=== PATIENT | male | born 1950 | race Caucasian/White ===

== ENCOUNTER 2022-06-11 11:18 | Inpatient (IN) | payer OTHER ==
[2022-06-11] MEDS ORDERED: Aspirin Chewable 81 MG TAB ONE (12:35)
[2022-06-11] MEDS ORDERED: Furosemide 40 MG/4 ML VIAL ONE (12:36)
[2022-06-11] MEDS ORDERED: Nitroglycerin 2% Ointment 1 INCH/1 GM Packet ONE (12:36)
[2022-06-11 13:08] LABS: #Basophils 0.1 10x3/uL (0.0-0.2); #Eosinphils 0.6 10x3/uL (0.0-0.5); #Monocytes 1.3 10x3/uL (0.0-1.1); #Neutrophils 6.8 10x3/uL (1.5-8.4); %Basophils 0.8 % (0.0-2.0); %Eosinophils 4.9 % (0.0-6.0); %Lymphocytes 24.9 % (18.0-47.0); %Monocytes 11.1 % (0.0-10.0); Hemoglobin 11.8 g/dL (13.5-17.5); Mean Corpuscular HGB CONC 31.7 g/dL (32.0-36.0); Mean Corpuscular Hemoglobin 28.9 pg (27.0-33.0); Mean Platelet Volume 10.2 fl (7.4-10.4); Platelet Count 294 10x3/uL (150-450); RBC Distribution Width 14.1 % (11.5-14.5); Red Blood Cell (RBC) Count 4.09 10x6/uL (4.32-5.72); White Blood Cell (WBC) Count 11.7 10x3/uL (3.5-10.5)
[2022-06-11 13:17] LABS: ALT (SGPT) 19 U/L (8-55); AST (SGOT) 20 U/L (5-34); Alkaline Phosphatase 65 U/L (40-110); Anion Gap 14 mmol/L (10-20); BUN (Urea Nitrogen) 21 mg/dL (8.4-25.7); CK (CPK) 58 U/L (30-200); Calc. Creatinine Clearance 0 mL/min (70-130); Calcium 8.8 mg/dL (7.8-10.44); Carbon Dioxide 20 mmol/L (23-31); Chloride 110 mmol/L (98-107); Estimated GFR 63; Globulin 2.8 g/dL (2.4-3.5); Glucose 97 mg/dL (83-110); PTT 24.2 sec (22.0-33.0); Potassium 3.9 mmol/L (3.5-5.1); Protein, Total 6.8 g/dL (5.8-8.1); Prothrombin Time 10.9 sec (9.5-12.1); Sodium 140 mmol/L (136-145)
[2022-06-11 15:32] LABS: Bilirubin Neg (Negative); Blood, Urine 10 (Negative); Clarity Slightly Cloudy (Clear); Glucose, Urine (Dipstick) Normal (Negative); Ketone, Urine Negative (Negative); Leukocyte 25 (Negative); Nitrite Negative (Negative); Protein, Urine (Dipstick) 100 mg/dl (Neg-Trace)
[2022-06-11 15:38] LABS: Bacteria/HPF None Seen HPF (None Seen); Mucous/LPF 3+ LPF (<2+); RBC/HPF 0-3 HPF (0-3); Squamous Epithelial 0-3 HPF (0-3); WBC/HPF 0-3 HPF (0-3)
[2022-06-11 16:12] LABS: Troponin I Less than 0.010 ng/mL (< 0.028)
[2022-06-11] MEDS ORDERED: Ondansetron ODT 4 MG TAB PO PRN (16:21)
[2022-06-11] MEDS ORDERED: Senokot S 8.6-50 MG TAB PO PRN (16:21)
[2022-06-11] MEDS ORDERED: Ondansetron PF 4 MG/2 ML Vial IVP PRN (16:21)
[2022-06-11] MEDS ORDERED: Acetaminophen 325 MG TAB PO PRN (16:21)
[2022-06-11 17:35] LABS: Magnesium 2.2 mg/dL (1.6-2.6)
[2022-06-11 19:18] LABS: Troponin I Less than 0.010 ng/mL (< 0.028)
[2022-06-11] MEDS ORDERED: Furosemide 40 MG/4 ML VIAL SLOW IVP SCH (21:00)
[2022-06-11] MEDS ORDERED: Carvedilol 25 MG TAB PO SCH (21:00)
[2022-06-11] MEDS: Atorvastatin Calcium 10 MG TAB PO SCH (21:42)
[2022-06-11] MEDS: Doxycycline 100 MG CAP PO SCH (21:42)
[2022-06-11] MEDS: Terazosin HCl 5 MG CAP PO SCH (21:43)
[2022-06-11] MEDS: hydrALAZINE 25 MG TAB PO SCH (21:43)
[2022-06-11] MEDS ORDERED: VANCOMYCIN 2 GRAM/400 ML BAG 2 GM in Premix Bag 1 BAG IVPB SCH (22:00)
[2022-06-12 01:30] LABS: SARS-CoV-2 NAA Rapid Test Not Detected (NotDetected)
[2022-06-12] MEDS: Vancomycin 1.5 GRAM/300 ML BAG IVPB SCH (05:52)
[2022-06-12] MEDS ORDERED: Furosemide 40 MG/4 ML VIAL SLOW IVP SCH (06:00)
[2022-06-12 06:23] LABS: #Basophils 0.1 10x3/uL (0.0-0.2); #Eosinphils 0.4 10x3/uL (0.0-0.5); #Monocytes 1.1 10x3/uL (0.0-1.1); #Neutrophils 5.3 10x3/uL (1.5-8.4); %Basophils 0.8 % (0.0-2.0); %Eosinophils 4.6 % (0.0-6.0); %Lymphocytes 24.6 % (18.0-47.0); %Monocytes 12.1 % (0.0-10.0); %Neutrophils 57.6 % (40.0-75.0); Hemoglobin 10.6 g/dL (13.5-17.5); Mean Corpuscular HGB CONC 31.9 g/dL (32.0-36.0); Mean Platelet Volume 10.4 fl (7.4-10.4); Platelet Count 250 10x3/uL (150-450); RBC Distribution Width 13.8 % (11.5-14.5); Red Blood Cell (RBC) Count 3.65 10x6/uL (4.32-5.72); White Blood Cell (WBC) Count 9.2 10x3/uL (3.5-10.5)
[2022-06-12 06:37] LABS: Anion Gap 14 mmol/L (10-20); BUN (Urea Nitrogen) 21 mg/dL (8.4-25.7); Calc. Creatinine Clearance 100 mL/min (70-130); Calcium 8.4 mg/dL (7.8-10.44); Carbon Dioxide 20 mmol/L (23-31); Chloride 112 mmol/L (98-107); Estimated GFR 63; Glucose 111 mg/dL (83-110); Potassium 3.6 mmol/L (3.5-5.1); Sodium 142 mmol/L (136-145)
[2022-06-12] MEDS ORDERED: Lisinopril 20 MG TAB PO SCH (09:00)
[2022-06-12] MEDS ORDERED: Lisinopril 5 MG TAB PO SCH (09:00)
[2022-06-12] MEDS ORDERED: Aspirin 81 mg Enteric Coated Tablet PO SCH (09:00)
[2022-06-12] MEDS ORDERED: Tamsulosin HCl 0.4 MG CAP PO SCH (09:00)
[2022-06-12] MEDS ORDERED: Apixaban 5 MG TAB PO SCH (09:30)
[2022-06-12] MEDS: Doxycycline 100 MG CAP PO SCH ×2 (09:58→20:29)
[2022-06-12] MEDS: Carvedilol 25 MG TAB PO SCH ×2 (09:58→17:45)
[2022-06-12] MEDS: Oxybutynin 5 MG TAB PO SCH (09:58)
[2022-06-12] MEDS: hydrALAZINE 25 MG TAB PO SCH ×2 (09:59→16:11)
[2022-06-12] MEDS: Furosemide 20 MG TAB PO SCH (16:11)
[2022-06-12] MEDS: cefTRIAXone\\ROCEPHIN 2 GM in Sodium Chloride 0.9% 100 ML IVPB SCH (17:45)
[2022-06-12] MEDS: Atorvastatin Calcium 10 MG TAB PO SCH (20:29)
[2022-06-12] MEDS: Terazosin HCl 5 MG CAP PO SCH (20:29)
[2022-06-12] MEDS: Apixaban 5 MG TAB PO SCH (20:29)
[2022-06-13 05:34] LABS: Anion Gap 12 mmol/L (10-20); BUN (Urea Nitrogen) 15 mg/dL (8.4-25.7); Calc. Creatinine Clearance 130 mL/min (70-130); Calcium 8.5 mg/dL (7.8-10.44); Carbon Dioxide 23 mmol/L (23-31); Chloride 109 mmol/L (98-107); Estimated GFR 86; Glucose 95 mg/dL (83-110); Potassium 3.2 mmol/L (3.5-5.1); Sodium 141 mmol/L (136-145)
[2022-06-13 05:38] VITALS: BMI 38.9
[2022-06-13 05:38] LABS: #Basophils 0.1 10x3/uL (0.0-0.2); #Eosinphils 0.4 10x3/uL (0.0-0.5); #Monocytes 0.7 10x3/uL (0.0-1.1); #Neutrophils 3.4 10x3/uL (1.5-8.4); %Basophils 0.7 % (0.0-2.0); %Eosinophils 6.4 % (0.0-6.0); %Lymphocytes 31.3 % (18.0-47.0); %Neutrophils 50.3 % (40.0-75.0); Mean Corpuscular HGB CONC 32.2 g/dL (32.0-36.0); Mean Corpuscular Volume 90.2 fl (81.2-95.1); Mean Platelet Volume 10.6 fl (7.4-10.4); Platelet Count 238 10x3/uL (150-450); RBC Distribution Width 13.9 % (11.5-14.5); Red Blood Cell (RBC) Count 3.79 10x6/uL (4.32-5.72); White Blood Cell (WBC) Count 6.7 10x3/uL (3.5-10.5)
[2022-06-13] MEDS ORDERED: Electrolyte Replacement Protocol 1 EACH FS SCH (08:15)
[2022-06-13] MEDS ORDERED: Potassium Chloride 20 MEQ TAB PO SCH (08:15)
[2022-06-13] MEDS ORDERED: Potassium Chloride 20 MEQ in Premix Bag 1 BAG IVPB SCH (08:15)
[2022-06-13] MEDS ORDERED: Lisinopril 20 MG TAB PO SCH (09:00)
[2022-06-13] MEDS: Doxycycline 100 MG CAP PO SCH (09:04)
[2022-06-13] MEDS: Oxybutynin 5 MG TAB PO SCH (09:04)
[2022-06-13] MEDS: Apixaban 5 MG TAB PO SCH ×2 (09:04→23:02)
[2022-06-13] MEDS: Furosemide 20 MG TAB PO SCH ×2 (09:04→17:22)
[2022-06-13] MEDS: Carvedilol 25 MG TAB PO SCH ×2 (09:12→17:08)
[2022-06-13] MEDS ORDERED: ePHEDrine Sulfate 50 MG/10 ML VIAL ONE (15:07)
[2022-06-13] MEDS ORDERED: Lidocaine 2% MPF 10 ML AMP (For Epidural Use) ONE (15:07)
[2022-06-13] MEDS ORDERED: PROPOFOL 20 ML ONE ×2 (15:07)
[2022-06-13] MEDS: Saccharomyces boulardii 250 MG CAP PO SCH (17:23)
[2022-06-13] MEDS: cefTRIAXone\\ROCEPHIN 2 GM in Sodium Chloride 0.9% 100 ML IVPB SCH (17:24)
[2022-06-13 17:26] LABS: Potassium 4.1 mmol/L (3.5-5.1)
[2022-06-13] MEDS: Amiodarone 200 MG TAB PO SCH (23:02)
[2022-06-13] MEDS: Atorvastatin Calcium 10 MG TAB PO SCH (23:02)
[2022-06-13] MEDS: Terazosin HCl 5 MG CAP PO SCH (23:02)
[2022-06-14 04:30] LABS: Anion Gap 11 mmol/L (10-20); BUN (Urea Nitrogen) 13 mg/dL (8.4-25.7); Calc. Creatinine Clearance 120 mL/min (70-130); Calcium 8.2 mg/dL (7.8-10.44); Carbon Dioxide 26 mmol/L (23-31); Chloride 108 mmol/L (98-107); Estimated GFR 79; Glucose 101 mg/dL (83-110); Magnesium 1.9 mg/dL (1.6-2.6); Potassium 3.2 mmol/L (3.5-5.1); Sodium 142 mmol/L (136-145)
[2022-06-14] MEDS ORDERED: Potassium Chloride 20 MEQ TAB PO SCH (08:00)
[2022-06-14] MEDS ORDERED: Magnesium 2 GM/50 ML(in water) 2 GM in Premix Bag 1 BAG IVPB SCH (08:00)
[2022-06-14] MEDS: Apixaban 5 MG TAB PO SCH (10:12)
[2022-06-14] MEDS: Furosemide 20 MG TAB PO SCH ×2 (10:12→15:30)
[2022-06-14] MEDS: Amiodarone 200 MG TAB PO SCH (10:13)
[2022-06-14] MEDS: Oxybutynin 5 MG TAB PO SCH (10:13)
[2022-06-14] MEDS: Carvedilol 6.25 MG TAB PO SCH ×2 (10:14→15:31)
[2022-06-14] MEDS: Cephalexin 500 MG CAP PO SCH ×2 (10:29→15:31)
[2022-06-14] MEDS: Potassium Chloride 20 MEQ TAB PO SCH ×2 (12:03→15:31)
[2022-06-14 13:03] LABS: Potassium 3.8 mmol/L (3.5-5.1)
[2022-06-14 13:28] VITALS: BP 129/68; TEMP 97.7
[2022-06-14] MEDS ORDERED: diphenhydrAMINE 25 MG CAP PO SCH (15:15)
[2022-06-14] MEDS: Saccharomyces boulardii 250 MG CAP PO SCH (15:31)
== END 2022-06-14 17:00 | disposition home or self-care (01) | DRG 291 ==
LOC: CSHERS 11:18 → CSHTELE 20:46 → EEVIPCON 06-12 16:24 → OBSVTOIN 06-12 16:24
PROVIDERS: ADMIT Internal Medicine; ATTEND Internal Medicine
PROC: 5A2204Z Restoration of Cardiac Rhythm, Single (ICD-10-PCS; principal; 2022-06-13)
PROC: B246ZZ4 Ultrasonography of Right and Left Heart, Transesophageal (ICD-10-PCS; 2022-06-13)
DX: I13.0 Hypertensive heart and chronic kidney disease with heart failure and stage 1 through stage 4 chronic kidney disease, or unspecified chronic kidney disease (principal); I50.33 Acute on chronic diastolic (congestive) heart failure; L03.115 Cellulitis of right lower limb; L03.116 Cellulitis of left lower limb; N40.0 Benign prostatic hyperplasia without lower urinary tract symptoms; E78.5 Hyperlipidemia, unspecified; I48.91 Unspecified atrial fibrillation; D63.1 Anemia in chronic kidney disease; N18.2 Chronic kidney disease, stage 2 (mild); M19.90 Unspecified osteoarthritis, unspecified site; Z20.822 Contact with and (suspected) exposure to COVID-19; E87.6 Hypokalemia; E83.42 Hypomagnesemia; Z79.82 Long term (current) use of aspirin; Z79.899 Other long term (current) drug therapy; Z98.890 Other specified postprocedural states
CPT/HCPCS: 36415; 71045; 80048; 80053; 81003; 81015; 82550; 83605; 83735; 83880; 84443; 84484; 85025; 85610; 85730; 87081; 92960; 93005; 93010; 93306; 93312; 94760; 96374; 96375; 97139; G0378; J0696; J1940; J2704; J3370; J3475; J3480; J3490